=== PATIENT | male | born 1955 | race Two or more races ===

== ENCOUNTER → 2016-09-04 | Outpatient (CLI) | payer OTHER ==
[~2016-09-04] MED LIST: PYRI100T2 PO; SAW500CA PO; SHAR500C PO; [UNRECOGNIZED DRUG - OTHER] PO
== END | disposition home or self-care (01) ==
LOC: STAR 07:52
PROVIDERS: ATTEND Surgery
DX: Z01.810 Encounter for preprocedural cardiovascular examination (principal); K40.91 Unilateral inguinal hernia, without obstruction or gangrene, recurrent
CPT/HCPCS: 93005

== ENCOUNTER 2016-09-07 09:51 | Day surgery (SDC) | payer OTHER ==
[~2016-09-07] VITALS: Ht 167.6 cm; Wt 77.0 kg
[~2016-09-07 09:51] MED LIST changes: +BUPIVACAINE/PF-EPI 0.25% 1:200K ONE
[2016-09-07] MEDS ORDERED: LACTATED RINGERS 1,000 ML IV SCH (10:54)
[2016-09-07] MEDS ORDERED: FENTANYL PF 250 MCG/5ML ONE (11:21)
[2016-09-07] MEDS ORDERED: MIDAZOLAM 1 MG/ML, 2ML ONE (11:21)
[2016-09-07 11:30] VITALS: BP 159/88
[2016-09-07] MEDS ORDERED: GLYCOPYRROLATE 0.2MG/1ML ONE (12:25)
[2016-09-07] MEDS ORDERED: PROPOFOL 10 MG/ML, 20ML ONE (12:25)
[2016-09-07] MEDS ORDERED: CEFOTETAN 2 GM ONE (12:25)
[2016-09-07] MEDS ORDERED: ONDANSETRON 2MG/ML, 2ML ONE (12:25)
[2016-09-07] MEDS ORDERED: CEFAZOLIN 1,000 MG ONE (12:25)
[2016-09-07] MEDS ORDERED: DEXAMETHASONE 4 MG/ML, 1ML ONE (12:25)
[2016-09-07] MEDS ORDERED: OXYcodone 5 MG/5 ML ORAL.SOL UDC PO PRN (13:30)
[2016-09-07] MEDS ORDERED: METOPROLOL 1 MG/ML, 5ML IV PRN (13:30)
[2016-09-07] MEDS ORDERED: HYDROmorphone 1 MG/ML, 1ML IV PRN (13:30)
[2016-09-07] MEDS ORDERED: PROMETHAZINE 25 MG/ML, 1ML IV PRN (13:30)
[2016-09-07] MEDS ORDERED: LABETALOL 5MG/ML, 20ML IV PRN (13:30)
[2016-09-07] MEDS ORDERED: ONDANSETRON 2MG/ML, 2ML IVPush PRN (13:30)
[2016-09-07] MEDS ORDERED: MIDAZOLAM 1 MG/ML, 2ML IV PRN (13:30)
[2016-09-07] MEDS ORDERED: ALBUTEROL SULFATE 2.5 MG/3 ML NPPB PRN (13:30)
[2016-09-07] MEDS ORDERED: MEPERIDINE/PF 25MG/0.5ML IVPush PRN (13:30)
[2016-09-07] MEDS ORDERED: ACETAMINOPHEN 325 MG TABLET PO PRN (13:30)
[2016-09-07] MEDS ORDERED: EPHEDRINE 50 MG/ML, 1ML IVPush PRN (13:30)
[2016-09-07] MEDS ORDERED: hydrALAzine 20 MG/ML, 1ML IV PRN (13:30)
[2016-09-07] MEDS ORDERED: FENTANYL PF 100 MCG/2ML ONE (13:59)
[2016-09-07] MEDS ORDERED: HYDROmorphone 2 MG/ML, 1ML ONE (13:59)
[2016-09-07] MEDS: FENTANYL PF 100 MCG/2ML IV PRN ×2 (14:00→14:40)
[2016-09-07] MEDS ORDERED: ACETAMINOPHEN 650 MG/20.3 ML UDC ONE (14:14)
[2016-09-07] MEDS ORDERED: OXYcodone 5 MG/5 ML ORAL.SOL UDC ONE (14:14)
== END 2016-09-07 18:30 | disposition home or self-care (01) ==
LOC: OUT 09:51
PROVIDERS: ATTEND Surgery
DX: K40.91 Unilateral inguinal hernia, without obstruction or gangrene, recurrent (principal); K38.8 Other specified diseases of appendix
CPT/HCPCS: 49520; C1781; J0690; J1100; J1170; J2250; J2405; J2704; J3010; J7120; J2175; J3490; S0074